=== PATIENT | female | born 1945 | race Caucasian/White ===

== ENCOUNTER 2019-01-13 10:12 | Outpatient (CLI) | payer MEDICARE ==
[2019-01-13] MEDS ORDERED: ATOR10TA9 PO (10:40)
[2019-01-13] MEDS ORDERED: GLUC-149 PO (10:54)
[2019-01-13] MEDS ORDERED: CALC-126 PO (10:54)
[2019-01-13] MEDS ORDERED: BIOT10TA PO (10:54)
[2019-01-13] MEDS ORDERED: FLAX340P PO (10:54)
[2019-01-13] MEDS ORDERED: LACT1CAP35 PO (10:54)
[2019-01-13] MEDS ORDERED: MULT-658 PO (10:54)
[2019-01-13] MEDS ORDERED: UBID100C24 PO (10:54)
== END 2019-01-13 23:59 | disposition home or self-care (01) ==
LOC: STAR 10:12
PROVIDERS: ATTEND Internal Medicine Gastroenterology
DX: D12.0 Benign neoplasm of cecum (principal); Z01.818 Encounter for other preprocedural examination
CPT/HCPCS: 93005

== ENCOUNTER 2019-01-30 05:44 | Day surgery (SDC) | payer MEDICARE ==
[2019-01-13 10:40] VITALS: BP 108/67
[~2019-01-30] VITALS: Ht 162.6 cm; Wt 52.3 kg
[~2019-01-30 05:44] MED LIST: ATOR10TA9 PO; BIOT10TA PO; CALC-126 PO; FLAX340P PO; GLUC-149 PO; LACT1CAP35 PO; MULT-658 PO; UBID100C24 PO
[2019-01-30] MEDS ORDERED: LACTATED RINGERS 1,000 ML IV SCH (06:49)
[2019-01-30] MEDS ORDERED: PROPOFOL 10 MG/ML, 20ML ONE (07:52)
[2019-01-30] MEDS ORDERED: ACETAMINOPHEN 325 MG TABLET PO PRN (09:00)
[2019-01-30] MEDS ORDERED: PROMETHAZINE 25 MG/ML, 1ML IV PRN (09:00)
[2019-01-30] MEDS ORDERED: LABETALOL 5MG/ML, 20ML IV PRN (09:00)
[2019-01-30] MEDS ORDERED: hydrALAzine 20 MG/ML, 1ML IV PRN (09:00)
[2019-01-30] MEDS ORDERED: ALBUTEROL SULFATE 2.5 MG/3 ML NPPB PRN (09:00)
[2019-01-30] MEDS ORDERED: PROMETHAZINE 12.5 MG SUPP PR PRN (09:00)
[2019-01-30] MEDS ORDERED: FENTANYL PF 100 MCG/2ML IV PRN (09:00)
[2019-01-30] MEDS ORDERED: ONDANSETRON ODT 8 MG PO PRN (09:00)
[2019-01-30] MEDS ORDERED: MORPHINE SULFATE 4 MG/ML, 1ML IVPush PRN (09:00)
[2019-01-30] MEDS ORDERED: HALOPERIDOL 5 MG/ML IV PRN (09:00)
[2019-01-30] MEDS ORDERED: MEPERIDINE/PF 25MG/0.5ML IVPush PRN (09:00)
[2019-01-30] MEDS ORDERED: EPHEDRINE 50 MG/ML, 1ML IVPush PRN (09:00)
[2019-01-30] MEDS ORDERED: ONDANSETRON 2MG/ML, 2ML IV PRN (09:00)
[2019-01-30] MEDS ORDERED: HYDROmorphone 2 MG/ML, 1ML IVPush PRN (09:00)
[2019-01-30] MEDS ORDERED: DIAZEPAM 5 MG/ML, 2ML IVPush PRN (09:00)
[2019-01-30] MEDS ORDERED: OXYcodone 5 MG/5 ML ORAL.SOL UDC PO PRN (09:00)
[2019-01-30] MEDS ORDERED: MIDAZOLAM 1 MG/ML, 2ML IV PRN (09:00)
== END 2019-01-30 10:20 | disposition home or self-care (01) ==
LOC: OUT 05:44
PROVIDERS: ATTEND Internal Medicine Gastroenterology
DX: Z09 Encounter for follow-up examination after completed treatment for conditions other than malignant neoplasm (principal); K63.5 Polyp of colon; K64.8 Other hemorrhoids; E78.5 Hyperlipidemia, unspecified; Z86.010 Personal history of colon polyps
CPT/HCPCS: 45381; 45385; 88305; A4648; J2704; J7120